=== PATIENT | female | born 1995 | race Caucasian/White ===

== ENCOUNTER 2017-06-12 13:52 | Emergency (ER) | payer OTHER ==
[2017-06-12 16:19] VITALS: BP 116/76
--- NOTE | 2017-07-07 10:02 | UC ---
Camila Aguilar Rebecca, scribed for Licha Guerra MD on 06/12/17 at 1620 . Eye Complaint HPI - HPI Summary HPI Summary: Pt is a 21 y/o F who presents to [facility] c/o bilateral eye erythema, pruritis. Sx began yesterday and have been constant since onset. Associated pain is currently mild, ranked 2/10. Additionally c/o bilateral eye drainage, characterized as "green goop," worse upon waking up. Sx aggravated by nothing, slightly alleviated by eye drops. Denies photophobia, cough, congestion, chills , fever, sore throat, abd pain and visual changes. - History of Current Complaint Chief Complaint: UCGeneralIllness Stated Complaint: EYE ISSUE Time Seen by Provider: 06/12/17 16:16 Hx Obtained From: Patient Hx Last Menstrual Period: 05/13/17 Onset/Duration: Lasting Days - Started yesterday, Still Present Timing: Constant Severity Currently: Mild Pain Intensity: 2 Pain Scale Used: 0-10 Numeric Aggravating Factor(s): Nothing Alleviating Factor(s): Eye Drops - Slightly Associated Signs And Symptoms: Positive: Drainage (Purulent) - "green goop". Negative: Photophobia, Vision Impairment Bilateral - Allergies/Home Medications Allergies/Adverse Reactions: Allergies Allergy/AdvReac Type Severity Reaction Status Date / Time No Known Allergies Allergy Verified 10/22/15 10:37 PMH/Surg Hx/FS Hx/Imm Hx Previously Healthy: Yes - No PMHX of DM, HTN, CAD - Surgical History Surgical History: Yes Surgery Procedure, Year, and Place: kidney surgery age 3 ureters were "twisted. " - Family History Known Family History: Positive: Diabetes - Social History Alcohol Use: Occasionally Substance Use Type: None Smoking Status (MU): Never Smoked Tobacco - Immunization History Most Recent Influenza Vaccination: none in 2014 Review of Systems Constitutional: Negative Skin: Negative Eyes: Drainage - Bilateral "green goop", Eye Redness, Other - Bilateral pruritis ENT: Negative Respiratory: Negative Cardiovascular: Negative Gastrointestinal: Negative Genitourinary: Negative Motor: Negative Neurovascular: Negative Musculoskeletal: Negative Neurological: Negative Psychological: Negative All Other Systems Reviewed And Are Negative: Yes - Comments Additional Review of Systems Comments: POSITIVE: Bilateral eye erythema, pruritis and drainage, characterized as " green goop" NEGATIVE: Photophobia, cough, congestion, chills, fever, sore throat, abd pain and visual changes. Physical Exam Triage Information Reviewed: Yes Appearance: Well-Nourished Vital Signs: Initial Vital Signs Temp 96.7 F 06/12/17 14:01 Pulse 74 06/12/17 14:01 Resp 18 06/12/17 14:01 BP 118/63 06/12/17 14:01 Pulse Ox 100 06/12/17 14:01 Vital Signs Reviewed: Yes Eyes: Positive: Conjunctiva Inflamed - + yellow discharge eye. ENT Exam: Normal ENT: Positive: Normal ENT inspection, Hearing grossly normal Neck exam: Normal Neck: Positive: Nontender Respiratory Exam: Normal Cardiovascular Exam: Normal Abdominal Exam: Normal Musculoskeletal Exam: Normal Neurological Exam: Normal Psychological Exam: Normal Skin Exam: Normal - Additional Comments Appearance: Well-Nourished Eye Exam: Bilateral sclera injection, bilateral conjunctival injection, left greater than right ENT Exam: Normal Neck: Normal, No adenopathy appreciated Respiratory Exam: Normal, no dyspnea, no tachypnea, normal respiratory rate Cardiovascular Exam: Normal Cardiovascular: Heart rate regular, good general skin color, good capillary refill, RRR, No Murmur, Pulses Normal - sitting up. Abdominal Exam: Normal Abdomen Description: Nontender, No Organomegaly, Soft Bowel Sounds: Present Musculoskeletal Exam: Normal Musculoskeletal: Strength Intact Neurological Exam: Normal: nonfocal, grossly intact Psychological Exam: Normal: conversing easily and appropriately Skin Exam: Normal: no visible or reported rash Eye Complaint Course/Dx - Course Course Of Treatment: Reviewed coa and f/u (luther if worse / no better). Questions answered as posed. Reviewed VS incl BP. - Differential Dx/Diagnosis Provider Diagnoses: Conjunctivitis Discharge - Discharge Plan Condition: Stable Disposition: HOME Prescriptions: Moxifloxacin 0.5% OPHTH(NF) [Vigamox 0.5% OPHTH(NF)] 2 drop BOTH EYES BID #1 [email or web address] Patient Education Materials: Conjunctivitis (ED) Forms: *Work Release Referrals: No Primary Care Phys,NOPCP [Primary Care Provider] - Additional Instructions: If green discharge is persists, cannot return to work - please seek medical attention for worse or new problems in the meantime. Take [id number] antihistamines, per packaging instructions as needed for itchy or watery eyes. If eye drops cause worsening redness, see your primary care physician or Urgent Care. The documentation as recorded by the Camila duff Rebecca accurately reflects the service I personally performed and the decisions made by me, Licha Guerra MD.
== END 2017-06-12 16:45 | disposition home or self-care (01) ==
LOC: UCEAST 13:52
DX: H10.33 Unspecified acute conjunctivitis, bilateral (principal)
CPT/HCPCS: 99212; G0463

== ENCOUNTER 2019-08-04 12:24 | Emergency (ER) | payer OTHER ==
[2019-08-04 13:16] VITALS: BP 123/71
--- NOTE | 2019-08-04 13:56 | UC ---
Complaint Female HPI - HPI Summary HPI Summary: Pt present with painful blisters found on left inner labia that began 1-2 days ago. Pt denies history of STI's including genital herpes. Pt is 19 weeks and scheduled for f//u on 08/12/19/ with OB provider - History Of Current Complaint Chief Complaint: UCGU Stated Complaint: URINARY Time Seen by Provider: 08/04/19 13:16 Hx Obtained From: Patient Hx Last Menstrual Period: 05/13/17 ?: Yes Onset/Duration: Sudden Onset, Lasting Days, Still Present Timing: Constant Severity Initially: Mild Severity Currently: Moderate Pain Intensity: 4 Character: Sharp, Burning Aggravating Factor(s): Urination Alleviating Factor(s): Nothing Associated Signs And Symptoms: Positive: Genital Blisters - Risk Factors Ectopic Risk Factor: Negative Ovarian Torsion Risk Factor: Reproductive Age - Allergies/Home Medications Allergies/Adverse Reactions: Allergies Allergy/AdvReac Type Severity Reaction Status Date / Time No Known Allergies Allergy Verified 08/04/19 13:10 Home Medications: Home Medications Mv-Mn/Iron/FA/Herbal/Digestive [ One Tablet] 1 each PO QAM 08/04/19 [ History Confirmed 08/04/19] PMH/Surg Hx/FS Hx/Imm Hx Previously Healthy: Yes - Surgical History Surgical History: Yes Surgery Procedure, Year, and Place: kidney surgery age 3 ureters were "twisted. " - Family History Known Family History: Positive: Diabetes - Social History Occupation: Employed Full-time Lives: With Family Alcohol Use: None Substance Use Type: None Smoking Status (MU): Never Smoked Tobacco Have You Smoked in the Last Year: No - Immunization History Most Recent Influenza Vaccination: none in 2014 Vaccination Up to Date: Yes Review of Systems All Other Systems Reviewed And Are Negative: Yes Constitutional: Positive: Negative Skin: Positive: Other - genital blisters Eyes: Positive: Negative ENT: Positive: Negative Respiratory: Positive: Negative Cardiovascular: Positive: Negative Gastrointestinal: Positive: Negative Genitourinary: Positive: Vaginal/Penile Tenderness, Ulceration/Lesion Motor: Positive: Negative Neurovascular: Positive: Negative Musculoskeletal: Positive: Negative Neurological: Positive: Negative Psychological: Positive: Negative Is Patient Immunocompromised?: No Physical Exam Triage Information Reviewed: Yes Appearance: Well-Appearing Vital Signs: Initial Vital Signs Temp 99.6 F 08/04/19 13:11 Pulse 87 08/04/19 13:11 Resp 20 08/04/19 13:11 BP 123/71 08/04/19 13:11 Pulse Ox 100 08/04/19 13:11 Vital Signs Reviewed: Yes Eye Exam: Normal ENT: Positive: Hearing grossly normal Dental Exam: Normal Neck exam: Normal Respiratory Exam: Normal Respiratory: Positive: No respiratory distress Pelvic Exam: Positive: Lesions - left inner labia major, cluster of fluid filled blisters that pt c/o of being painful. Musculoskeletal Exam: Normal Neurological Exam: Normal Psychological Exam: Normal Skin: Positive: Significant Lesion(s) - left inner labia major, clear fluid filled and tender Complaint Female Dx - Course Course Of Treatment: I discussed with the pt my concern for HSV and pt verbalized understanding. I also discussed that the blisters were in tact and nothing to swab. Pt verbalized understanding and agreed to plan of care. - Differential Dx/Diagnosis Differential Diagnosis/HQI/PQRI: Sexually Transmitted Disease Provider Diagnosis: Vaginal lesion Discharge ED - Sign-Out/Discharge Documenting (check all that apply): Patient Departure All imaging exams completed and their final reports reviewed: No Studies - Discharge Plan Condition: Stable Disposition: HOME Patient Education Materials: Vaginitis (ED) Referrals: Poonam Moran MD [Primary Care Provider] - If Needed Additional Instructions: Please follow up with your OB-Neuropsychology Director provider as soon as possible. - Billing Disposition and Condition Condition: STABLE Disposition: Home
== END 2019-08-04 13:59 | disposition home or self-care (01) ==
LOC: UCCORT 12:24
DX: N89.8 Other specified noninflammatory disorders of vagina (principal); O26.892 Other specified pregnancy related conditions, second trimester; Z3A.19 19 weeks gestation of pregnancy
CPT/HCPCS: 81003; 87086; 99211; G0463

== ENCOUNTER 2019-10-03 16:48 | Emergency (ER) | payer SELFPAY ==
[2019-10-03 17:34] VITALS: BP 142/94
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
== END 2019-10-03 18:05 | disposition home or self-care (01) ==
LOC: UCCORT 16:48
DX: O99.713 Diseases of the skin and subcutaneous tissue complicating pregnancy, third trimester (principal); L03.113 Cellulitis of right upper limb
CPT/HCPCS: 99212; G0463

== ENCOUNTER 2019-12-21 08:20 | Inpatient (IN) | payer OTHER ==
[2019-12-21] MEDS ORDERED: Lactated Ringers 1000 ML Bag* 1,000 ML IV ONE (09:10)
[2019-12-21] MEDS ORDERED: Buffered Lidocaine 1% SYRIN* 1 ML/SYRINGE INTRADERM ONE (09:10)
--- NOTE | 2019-12-21 09:24 | HP ---
General Information - Reason for Visit 24yo, IUP@39 week here for an IOL for A1 GDM - General Information Maternal Age: 24 Grav: 2 Para: 0 SAB: 0 IEA: 1 Estimated Due Date: 12/28/19 Determined By: Early Ultrasound Gestational Age in Weeks/Days: 39+0 Maternal Blood Type and Rh: B Positive - Results this Serology/RPR Result: Non-Reactive Rubella Result: Immune HBsAg Result: Negative HIV Result: Negative GBS Culture Result: Negative Past Medical History Past Surgical History Comment: Hx of uterine surgery at age 3 "to remove extra tube." Pt told "no impact on pregnancies" Family History Comment: PGM: diabetes MGF: stomach cancer - Antepartal Records Antepartal Records: Reviewed, Complicated by: - primary HSV outbreak, A1 GDM, mild pyelectasis Review of Systems Constitutional: Comfortable CV Complaint: No Respiratory: Shortness of Breath: No Gastrointestinal: No Nausea/Vomiting, Normal Bowel Movement Genitourinary: No Dysuria, No Bleeding, No Leaking Fluid Musculoskeletal: No Complaint, No Epigastric Pain Neurological: No Headache, No Visual Changes Movement: Normal Exam Allergies/Adverse Reactions: Allergies No Known Allergies Allergy (Verified 10/03/19 17:29) temp 97.8, HR 99, RR 20, BP 133/94, O2 100% - Measurements Height: 5 ft 2 in Weight: 7.337 oz Weight in lbs: 0.228885 Body Mass Index (BMI): 0.1 Pre- Weight: 198 lb Weight Gained This : 0.022 lbs and 0.001 ozs - Exam Breast: Breast Exam Deferred CVA: No CVA Tenderness Extremities: No Edema Heart: Normal Rhythm/Heart Sounds HEENT: No Significant Findings Lungs: Clear Bilaterally Rectal: Rectal Exam Deferred Reflexes: DTR 2+ Thyroid: No Thyromegaly - Abdominal Exam Abdomen Exam: Non-Tender - Ultrasound/Biophysical Profile Ultrasound Status: Not Done Targeted Exam Findings Estimated Weight: 8.5 lbs Cervical Exam: Fingertip - per VE in office yesterday by ASHELY ADAMSON Effacement: 60% Station: -2 Presenting Part: Vertex Membrane Status: Intact Bleeding/Discharge: None EFM Findings - External Monitor Findings Baseline Heart Rate: 125 External Monitor Findings: Accelerations Present, No Pattern of Variable or Late Decelerations, Variability Moderate External Monitor Findings Comment: No evidence of metabolic acidemia Contractions: None Assessment/Plan - Assessment 24yo, , IUP@39, here for an IOL for A1 GDM complicated by: A1 GDM, HSVII - primary outbreak GBS negative, B+, rubella immune VSS, not in labor No evidence of acidemia Not timoteo VE: deferred - Obstetrical Risk Factors Obstetrical Risk Factors: Gestational Diabetes Risk Factors Comment: 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 Pt and provider agree to start misoprostol, 50mcg, PO Anticipate progression to active labor - Date/Time of Admission Date of Admission: 12/21/19 Time of Admission: 09:00
[2019-12-21 09:58] LABS: Urine Benzodiazepine Screen None Detected (None Detect); Urine Opiates Screen None Detected (None Detect)
[2019-12-21] MEDS ORDERED: Misoprostol TAB* 100 MCG PO PRN (10:00)
[2019-12-21] MEDS ORDERED: Misoprostol TAB* 100 MCG ONE (13:34)
--- NOTE | 2019-12-21 16:14 | PN ---
Progress Note - Progress Note Date of Service: 12/21/19 Note: S: Pt in bed resting. Feeling contractions every 3-4 minutes, uncomfortable, but not painful. Mother and FOB at bedside, supportive. O: BP 134/87, HR 88, temp 98.3 FHR: 130, mod variability, +accels, no decels Ctx: q3-4, coupling, palpate moderate VE: deferred A: IUP@39 weeks here for ripening/IOL A1 GDM Not in active labor No evidence of metabolic acidemia Irregular contractions 2 doses on misoprostol. P: Consider 3rd dose of misoprostol, unless hold for contractions Anticipate progression to active labor
[2019-12-21] MEDS ORDERED: Dinoprostone* 10 MG VAG.SUPP VAGINAL ONE (20:50)
--- NOTE | 2019-12-21 21:50 | PN ---
Progress Note - Progress Note Date of Service: 12/21/19 Note: S: Pt in bed resting. Feeling contractions every 3-4 minutes. Some more uncomfortable than others, but generally describes as mild. O: BP 135/85, HR 93, temp 98 FHR: 135, mod variability, +accels, no decels Ctx: q3-4, coupling, palpate mild VE: unchanged A: IUP@39 weeks here for ripening/IOL A1 GDM Not in active labor No evidence of metabolic acidemia Irregular contractions, mild contractions, good resting tone P: PARQ discussion about cervidil overnight. Pt and in agreement with plan. Anticipate progression to active labor
[2019-12-21] MEDS: VALACYCLOVIR 1 GM PO SCH (22:10)
[2019-12-21] MEDS: diPHENhydraMINE PO* 50 MG PO PRN (22:10)
[2019-12-22] MEDS ORDERED: Misoprostol TAB* 100 MCG VAGINAL ONE (09:56)
--- NOTE | 2019-12-22 10:31 | PN ---
Progress Note - Progress Note Date of Service: 12/22/19 Note: S: Reports good rest overnight. occasionally feeling UCs but not very strong O: B/P 126/84, P 75, R 18, T 98.8 FHR: baseline 130, moderate variability, + accels, no decels UCs: irregular, mild VE: FT/60/-1 A: IUP at 39 0/7 weeks No evidence of metabolic acidemia George score: 3 P: PARQ discussion ripening with vaginal misoprostol. Pt agrees Reassess PRN Anticipate SVB
[2019-12-22] MEDS ORDERED: Misoprostol TAB* 100 MCG PO ONE (13:53)
--- NOTE | 2019-12-22 14:03 | PN ---
Progress Note - Progress Note Date of Service: 12/22/19 Note: S: Has not felt UCs since dose of vaginal misoprostol O: B/P: 126/84, P: 75, R: 18, T: 98.8 FHR: baseline 135, moderate variability, +accelerations, no decelerations UCs: irregular, mild VE: 1.5/60/-1 A: IUP at 39 0/7 weeks No evidence of metabolic acidemia George score: 4 P: Will dose with 50 mcg misoprostol sublingually EFM per protocol Reassess PRN Anticipate SVB
[2019-12-22] MEDS: VALACYCLOVIR 1 GM PO SCH ×3 (16:49→22:52)
--- NOTE | 2019-12-22 18:09 | PN ---
Progress Note - Progress Note Date of Service: 12/22/19 Note: S: Feeling some UCs O: B/P: 136/92, P: 78, R: 20, T: 98.4 FHR: FHR 130s by intermittent auscultation UCs: q 2-5 min, mild to palpation VE: 0.5/60/-1 A: IUP at 39 0/7 weeks No evidence of metabolic acidemia George score: 4 P: Attempted to place cook catheter, unable to pass catheter through internal os Discussed options for further ripening/IOL, pt opts for trial of low-dose IV pitocin Will start IV and draw labs, obtain FHR tracing prior to initiation Reassess PRN Anticipate SVB
[2019-12-22 18:43] LABS: ABS Basophils 0.1 10^3/ul (0-0.2); ABS Eosinophils 0.1 10^3/ul (0-0.6); ABS Lymphocytes 2.1 10^3/ul (1.0-4.8); ABS Monocytes 1.2 10^3/ul (0-0.8); ABS Neutrophils 13.9 10^3/ul (1.5-7.7); Eosinophil % 0.5 %; Hematocrit 35 % (35-47); Hemoglobin 12.2 g/dL (12.0-16.0); Mean Corpuscular HGB Conc 35 g/dL (31-36); Mean Corpuscular Hemoglobin 30 pg (27-31); Mean Corpuscular Volume 86 fL (80-97); Mean Platelet Volume 8.3 fL (7.4-10.4); Platelet Count 266 10^3/uL (150-450); Red Blood Count 4.13 10^6 /uL (3.70-4.87); Red Cell Distribution Width 15 % (10-15); White Blood Count 17.3 10^3/uL (3.5-10.8)
[2019-12-22] MEDS ORDERED: Oxytocin in LR* 20 UNITS/1,000 ML BAG IVPB SCH (19:00)
[2019-12-22] MEDS: diPHENhydraMINE PO* 50 MG PO PRN (22:52)
--- NOTE | 2019-12-23 00:23 | PN ---
Progress Note - Progress Note Date of Service: 12/23/19 Note: S: Reports gush of clear fluid at 1200. Still feeling fairly comfortable. O: B/P: 123/68, P: 68, R: 20, T: 98.7 FHR: baseline 150, moderate variability, +accelerations, no decelerations UCs: not always tracing well, q 2-3 min, mild VE deferred in presence of gross rupture to clear fluid Pitocin at 10 mu/min A: IUP at 39 1/7 weeks Category I FHR, no evidence of metabolic acidemia P: Continue pitocin per protocol Reassess PRN Anticipate SVB
[2019-12-23] MEDS ORDERED: Morphine 10 MG/ML VIAL (1 ml) IV ONE ×2 (01:08→08:53)
[2019-12-23] MEDS ORDERED: Promethazine INJ(RESTRICTED)* 25 MG/ML 1 ML VIAL IV ONE (01:12)
--- NOTE | 2019-12-23 01:16 | PN ---
Progress Note - Progress Note Date of Service: 12/23/19 Note: S: Reports she quickly got very uncomfortable, requesting pain medication O: B/P: 123/68, P: 68, R: 20, T: 98.7 FHR: baseline 135, minimal variability with periods of moderate variability , no accelerations. Occasional late decelerations. Occasional early decels UCs: q 2-3 min, not tracing well, mild-moderate to palpation VE: 1-1.5/65/-1. Clear fluid Pitocin at 10 mu/min A: IUP at 39 1/7 weeks Category II FHR, doubt metabolic acidemia Early labor P: Pt ultimately plans epidural. Will give morphine and phenergan for therapeutic rest Continue pitocin per protocol. Ok to take a pitocin rest for 1-2 hrs if she desires reassess PRN Anticipate SVB
--- NOTE | 2019-12-23 05:08 | PN ---
Progress Note - Progress Note Date of Service: 12/23/19 Note: S: Initially comfortable after therapeutic rest, requesting to discuss pain management options O: B/P: 123/68, P: 68, R: 20, T: 98.7 FHR: baseline 125, moderate variability, +accelerations, no decelerations UCs: q 3-4 min, mild-moderate VE: 1.5/80/-1. Clear fluid Pitocin at 10 mu/min A: IUP at 39 1/7 weeks Category I FHR, no evidence of metabolic acidemia P: Too soon for repeat dose therapeutic rest Discussed taking break from pitocin for 1-2 hrs, getting in tub or shower, resting without monitors prior to restarting Re-start pitocin at 0700 Anticipate SVB
[2019-12-23] MEDS ORDERED: Promethazine INJ(RESTRICTED)* 25 MG/ML 1 ML VIAL IV PRN (08:53)
--- NOTE | 2019-12-23 09:04 | PN ---
Progress Note - Progress Note Date of Service: 12/23/19 Note: S: Feeling ok, got a little bit of sleep but feels like she might want to rest more. Contractions spaced out but still strong when she feels them. O: VE deferred FHT 145 last doppler UCs approx Q 6+ min Last BP 135/91, T 98.0 Pitocin off A: IUP @ 39+2 weeks gestation for induction of labor GDM Ruptured membranes No evidence acidemia P: Discussion with patient of continued rest as she reports being tired and not sleeping well vs restarting pitocin. Patient desires therapeutic rest, had good effect yesterday with morphine/phenergan. Will repeat dose with plan for restarting pitocin and encouraging ambulation in several hours. Will draw labs for PEC.
[2019-12-23 09:29] LABS: ABS Lymphocytes 1.5 10^3/ul (1.0-4.8); ABS Monocytes 0.8 10^3/ul (0-0.8); ABS Neutrophils 18.3 10^3/ul (1.5-7.7); Hematocrit 34 % (35-47); Hemoglobin 11.9 g/dL (12.0-16.0); Lymphocyte % 7.2 %; Mean Corpuscular HGB Conc 35 g/dL (31-36); Mean Corpuscular Hemoglobin 29 pg (27-31); Mean Corpuscular Volume 85 fL (80-97); Mean Platelet Volume 8.6 fL (7.4-10.4); Platelet Count 236 10^3/uL (150-450); Red Blood Count 4.03 10^6 /uL (3.70-4.87); Red Cell Distribution Width 15 % (10-15); White Blood Count 20.7 10^3/uL (3.5-10.8)
[2019-12-23 09:51] LABS: Albumin 2.9 g/dL (3.2-5.2); BUN/Creatinine Ratio 11.9 (8-20); Calcium 9.1 mg/dL (8.6-10.3); EGFR African American 129.8 (>60); EGFR Non-African American 107.2 (>60); Globulin 2.9 g/dL (2-4); Potassium 3.6 mmol/L (3.5-5.0); Total Bilirubin 0.3 mg/dL (0.2-1.0); Total Protein 5.8 g/dL (6.4-8.9); Uric Acid 4.8 mg/dL (2.3-6.6)
[2019-12-23 12:25] LABS: Urine Appearance Cloudy; Urine Bilirubin Negative (Negative); Urine Blood 3+ (Negative); Urine Color Yellow; Urine Glucose Negative (Negative); Urine Ketones Negative (Negative); Urine Nitrite Negative (Negative); Urine Protein Negative (Negative); Urine Specific Gravity 1.004 (1.010-1.030); Urine Urobilinogen Negative (Negative)
[2019-12-23 12:43] LABS: Urine Bacteria Absent (Absent); Urine Red Blood Cell 3+(>10/hpf) (Absent); Urine Squamous Epithelial Cell Present (Absent); Urine White Blood Cell 3+(>20/hpf) (Absent)
[2019-12-23] MEDS: Lactated Ringers 1000 ML Bag* 1,000 ML IV SCH ×2 (13:22→19:15)
[2019-12-23] MEDS ORDERED: Sodium Phosphate ADULT ENEMA* 118 ml bottle PR ONE (16:21)
--- NOTE | 2019-12-23 16:23 | PN ---
Progress Note - Progress Note Date of Service: 12/23/19 Note: S: Patient felt like she had to have bowel movement, struggled to do so and felt "shaky" on toilet with increased rectal pressure. O: VE 3/80/0 FHT 145, occasional variable decels, +accels, min-mod variability UCs difficult to trace, approx q 3-4 min Pit @ 8 Pre-eclampsia labs WNL A: IUP @ 39+2 weeks gestation for induction of labor Membranes ruptured Doubt acidemia P: Discussion of enema, patient in agreement. Will plan to turn off pitocin to make this process easier. Patient may want to try tub. Will desire epidural when labor stronger.
[2019-12-23] MEDS: VALACYCLOVIR 1 GM PO SCH ×2 (18:12)
[2019-12-23] MEDS ORDERED: OBEPIDURAL* 250 ML EPIDURAL ONE (19:31)
--- NOTE | 2019-12-23 19:56 | PN ---
Progress Note - Progress Note Date of Service: 12/23/19 Note: S: Patient desires pain management, would like epidural. O: VE deferred FHT 145, +accels, rare variable decel, mod riya UCs q 3-5 min Last BP 158/101, with contraction, will repeat. Pit @ 6 A: IUP in active labor Doubt acidemia Suspect GHTN P: Anesthesia paged
[2019-12-23 20:05] LABS: Mean Platelet Volume 8.6 fL (7.4-10.4); Platelet Count 255 10^3/uL (150-450)
[2019-12-23] MEDS ORDERED: Famotidine TAB* 20 MG PO PRN (20:49)
[2019-12-23] MEDS ORDERED: EPHEDrine (Pressors)* 50 MG/ML VIAL IV PUSH PRN ×2 (20:49)
[2019-12-23] MEDS ORDERED: Sodium Citrate/Citric Acid* 15 ML UDC PO PRN (20:49)
[2019-12-23] MEDS ORDERED: Phenylephrine 40 MCG/ML SYRINGE IV PUSH PRN ×2 (20:49)
[2019-12-23] MEDS ORDERED: OBEPIDURAL* 250 ML EPIDURAL SCH (21:00)
--- NOTE | 2019-12-23 21:01 | PN ---
Progress Note - Progress Note Date of Service: 12/23/19 Note: S: Feeling great, comfortable with epidural O: VE /+1 FHT 145, +accels, mod riya, rare variable decel Pit @ 6 VSS A: IUP @ 39+2 weeks gestation in labor Doubt metabolic acidemia P: Encourage side to side position changes, rest as desired. Will recheck with increased pressure or other changes. Anticipate SVB.
[2019-12-23] MEDS ORDERED: Lidocaine 1.5% EPI 1:200,000* 30 ML SDV ONE (23:57)
[2019-12-24] MEDS ORDERED: Acetaminophen TAB* 325 MG PO PRN (01:18)
[2019-12-24] MEDS ORDERED: Glycerin ADULT SUPP PR PRN (01:18)
[2019-12-24] MEDS ORDERED: Oxytocin in LR* 20 UNITS/1,000 ML BAG IVPB SCH (02:00)
[2019-12-24] MEDS ORDERED: Lactated Ringers 1000 ML Bag* 1,000 ML IV SCH (02:00)
[2019-12-24] MEDS: Ibuprofen TAB* 600 MG PO PRN ×2 (02:14→12:14)
[2019-12-24] MEDS: Dibucaine 1% 28.35 GM TUBE PR PRN ×2 (02:16→21:38)
[2019-12-24] MEDS: Witch Hazel PAD* JAR TOPICAL PRN (02:16)
--- NOTE | 2019-12-24 02:19 | PROCNOTE ---
[facility] OB: Delivery Note - Delivery A Date of : 12/24/19 Time of : 00:50 [place] Sex: Male - "Ron Woodall" Weight at : 7 lb 4 oz Score 1 Minute: 6 Score 5 Minutes: 9 Gestational Age in Weeks and Days at Delivery: 39 Weeks and 3 Days Delivery Method: Spontaneous Vaginal Labor: Spontaneous Amniotic Fluid: Clear Estimated Blood Loss: 200 Anesthesia/Analgesia: CEI for Labor Delivered By: Andrea Luevano - Nursery Level of Nursery: Regular/Bedside - Perineum Perineal Injury Comment: right labial with repair Perineal Repair: By Delivering Practioner - Events Delivery Events of Note: Pitocin During Labor, ROM > 24 Hours - Additional Delivery Notes Additional Delivery Notes: Patient admitted for induction of labor for GDM. Cervical ripening and pitocin eventually lead to active labor. Patient received epidural with initial relief but had breakthrough pain in right side. Anesthesia called to assess for bolus and patient progressed rapidly to complete with urge to push. Length of active labor 24'56", pushed 50 min. Baby born OA with smooth restitution to JOSE at 0050. Double nuchal cord noted but too tight to be unwrapped and baby delivered through with anterior nuchal arm as well. Cord unwrapped after and baby to maternal abdomen with respiratory efforts with stimulation. HR >110. Cord doubly clamped and cut by FOB once pulsations ceased. Placenta at introitus and delivered with gentle traction @ 0056. Fundus firm with pitocin infusing. Perineum intact, small right labial abrasion repaired with two stitches. Baby at breast to initiate .
[2019-12-24] MEDS ORDERED: Lidocaine 1% INJ* 10 MG/ML 30 ML SDV ONE (06:33)
[2019-12-24] MEDS: Docusate CAP* 100 MG PO SCH ×3 (08:33→21:38)
[2019-12-24] MEDS: VALACYCLOVIR 1 GM PO SCH ×2 (21:38→22:16)
[2019-12-25] MEDS: Docusate CAP* 100 MG PO SCH ×3 (07:59→20:13)
[2019-12-25] MEDS: Ibuprofen TAB* 600 MG PO PRN ×3 (07:59→20:13)
[2019-12-25 08:12] LABS: ABS Basophils 0.1 10^3/ul (0-0.2); ABS Eosinophils 0.2 10^3/ul (0-0.6); ABS Lymphocytes 2.9 10^3/ul (1.0-4.8); ABS Monocytes 1.1 10^3/ul (0-0.8); ABS Neutrophils 9.8 10^3/ul (1.5-7.7); Eosinophil % 1.7 %; Hematocrit 35 % (35-47); Hemoglobin 11.9 g/dL (12.0-16.0); Lymphocyte % 20.6 %; Mean Corpuscular HGB Conc 34 g/dL (31-36); Mean Corpuscular Hemoglobin 30 pg (27-31); Mean Corpuscular Volume 86 fL (80-97); Mean Platelet Volume 8.2 fL (7.4-10.4); Nucleated Red Blood Cells % 0.1; Platelet Count 222 10^3/uL (150-450); Red Blood Count 4.01 10^6 /uL (3.70-4.87); Red Cell Distribution Width 15 % (10-15); White Blood Count 14.1 10^3/uL (3.5-10.8)
[2019-12-25] MEDS ORDERED: Ferrous Gluconate TAB* 324 MG TAB PO SCH (09:00)
[2019-12-25] MEDS: VALACYCLOVIR 1 GM PO SCH ×2 (11:04→20:12)
[2019-12-25] MEDS: Witch Hazel PAD* JAR TOPICAL PRN (14:04)
[2019-12-25] MEDS: Dibucaine 1% 28.35 GM TUBE PR PRN (14:04)
[2019-12-26] MEDS: VALACYCLOVIR 1 GM PO SCH ×2 (07:22→08:27)
[2019-12-26 07:32] VITALS: BP 132/87
[2019-12-26] MEDS: Docusate CAP* 100 MG PO SCH ×2 (08:27→14:12)
[2019-12-26] MEDS: Ibuprofen TAB* 600 MG PO PRN ×2 (08:28→14:12)
== END 2019-12-26 18:49 | disposition home or self-care (01) | DRG 560 ==
LOC: MCHOBOUT 08:20 → MCHOB 09:25
PROVIDERS: ADMIT Advanced Practice Midwife; ATTEND Midwife
PROC: 10E0XZZ Delivery of Products of Conception, External Approach (ICD-10-PCS; principal; 2019-12-24)
PROC: 3E033VJ Introduction of Other Hormone into Peripheral Vein, Percutaneous Approach (ICD-10-PCS; 2019-12-24)
PROC: 0HQ9XZZ Repair Perineum Skin, External Approach (ICD-10-PCS; 2019-12-24)
DX: O24.429 Gestational diabetes mellitus in childbirth, unspecified control (principal); Z37.0 Single live birth; O70.0 First degree perineal laceration during delivery; O76 Abnormality in fetal heart rate and rhythm complicating labor and delivery; Z3A.39 39 weeks gestation of pregnancy
CPT/HCPCS: 36415; 59200; 80053; 80307; 81003; 81015; 84550; 85025; 85049; 86850; 86900; 86901; 87086; A9270-GY; G0480; J2270; J2550; S0191

== ENCOUNTER 2023-07-07 00:27 | Inpatient (IN) ==
[2023-07-07] MEDS ORDERED: Lactated Ringers 1000 ml BAG 1,000 ML IV ONE ×2 (01:48→13:54)
[2023-07-07] MEDS ORDERED: Promethazine INJ(RESTRICTED) 25 MG/ML 1 ml VIAL IV PRN (01:48)
[2023-07-07] MEDS ORDERED: Buffered Lidocaine 1% SYRIN 1 ml INTRADERM ONE (01:48)
[2023-07-07] MEDS ORDERED: Lactated Ringers 1000 ml BAG 1,000 ML IV SCH ×3 (02:00→18:00)
[2023-07-07 02:34] LABS: Urine Benzodiazepine Screen None Detected (None Detect); Urine Opiates Screen None Detected (None Detect)
[2023-07-07 09:06] LABS: ABS Eosinophils 0.1 10^3/uL (0.0-0.5); ABS Lymphocytes 1.8 10^3/uL (1.0-4.8); ABS Monocytes 0.9 10^3/uL (0.0-0.9); ABS Neutrophils 10.8 10^3/uL (1.5-7.6); ABS Nucleated RBC 0.03 10^3/ul; Eosinophil % 0.4 %; Hematocrit 30.3 % (35-45); Hemoglobin 10.3 g/dL (11.5-14.3); Lymphocyte % 13.2 %; Mean Corpuscular Hemoglobin 28.1 pg (27-33); Mean Corpuscular Volume 82.6 fL (80-97); Mean Platelet Volume 7.6 fL (7.5-11.2); Nucleated Red Blood Cells % 0.2 /100 WBC (0.0-0.4); Platelet Count 228 10^3/uL (150-450); Red Blood Count 3.66 10^6/uL (3.63-4.92); Red Cell Distribution Width 14.9 % (12-17); White Blood Count 13.6 10^3/uL (3.8-11.8)
[2023-07-07] MEDS ORDERED: Oxytocin in LR 20,000 MILLI.UNIT/1,000 ML BAG IV SCH ×2 (11:10→17:25)
[2023-07-07 11:13] LABS: Urine Appearance Cloudy; Urine Bilirubin Negative (Negative); Urine Blood 2+ (Negative); Urine Color Straw; Urine Glucose Negative (Negative); Urine Ketones Negative (Negative); Urine Nitrite Negative (Negative); Urine Protein Negative (Negative); Urine Specific Gravity 1.003 (1.002-1.030); Urine Urobilinogen Negative (Negative)
[2023-07-07 11:18] LABS: Urine Bacteria Absent (Absent); Urine Red Blood Cell Trace(0-2/hpf) (Absent); Urine Squamous Epithelial Cell Present (Absent); Urine White Blood Cell Trace(0-5/hpf) (Absent)
[2023-07-07 11:27] LABS: Albumin 3.3 g/dL (3.2-5.2); Albumin/Globulin Ratio 1.4 (1-3); Calcium 10.2 mg/dL (8.6-10.3); Creatinine, Serum 0.76 mg/dL (0.51-0.95); Globulin 2.4 g/dL (2-4); Potassium 3.5 mmol/L (3.5-5.0); Total Bilirubin 0.4 mg/dL (0.2-1.0); Total Protein 5.7 g/dL (6.4-8.9); eGFR CKD-EPI 109.4 (>60)
[2023-07-07 11:28] LABS: Urine Creatinine Concentration 22.2 mg/dL (20.00-320.00)
[2023-07-07 11:32] LABS: Urine TP Creat Ratio 0.27 mg/mg
[2023-07-07] MEDS ORDERED: Lidocaine 1.5% EPI 1:200,000 30 ML SDV ONE (12:57)
[2023-07-07] MEDS ORDERED: OBEPIDURAL (200 ML) 200 ML EPIDURAL ONE (12:57)
[2023-07-07] MEDS ORDERED: Sodium Citrate/Citric Acid LIQ 15 ML UDC PO PRN (13:54)
[2023-07-07] MEDS ORDERED: Phenylephrine 40 mcg/mL 10mL (400mcg) SYRINGE IV PUSH PRN ×2 (13:54)
[2023-07-07] MEDS ORDERED: Lactated Ringers 1000 ml BAG 500 ML IV PRN ×2 (13:54)
[2023-07-07] MEDS ORDERED: OBEPIDURAL (200 ML) 200 ML EPIDURAL SCH (14:00)
[2023-07-07] MEDS ORDERED: Witch Hazel PAD JAR TOPICAL PRN (17:21)
[2023-07-07] MEDS ORDERED: Dibucaine 1% OINT 28.35 GM TUBE PR PRN (17:21)
[2023-07-08 07:25] LABS: ABS Eosinophils 0.1 10^3/uL (0.0-0.5); ABS Lymphocytes 2.2 10^3/uL (1.0-4.8); ABS Monocytes 1.1 10^3/uL (0.0-0.9); ABS Neutrophils 10.8 10^3/uL (1.5-7.6); ABS Nucleated RBC 0.01 10^3/ul; Eosinophil % 0.4 %; Hematocrit 27.3 % (35-45); Hemoglobin 9.4 g/dL (11.5-14.3); Lymphocyte % 15.2 %; Mean Corpuscular Hemoglobin 27.8 pg (27-33); Mean Corpuscular Hgb Conc 34.5 g/dL (31-36); Mean Corpuscular Volume 80.5 fL (80-97); Mean Platelet Volume 7.2 fL (7.5-11.2); Platelet Count 202 10^3/uL (150-450); Red Blood Count 3.39 10^6/uL (3.63-4.92); Red Cell Distribution Width 14.9 % (12-17); White Blood Count 14.1 10^3/uL (3.8-11.8)
[2023-07-08] MEDS ORDERED: Varicella Virus Vaccine Live 0.5 ML VIAL SUBCUT ONE (15:05)
[2023-07-08 16:48] VITALS: BP 135/89
== END 2023-07-08 18:45 | disposition home or self-care (01) | DRG 560 ==
LOC: MCHOBOUT 00:27 → MCHOB 01:43 → UNDODISIN 13:32 → MCHOB 20:02
PROVIDERS: ADMIT Registered Nurse; ATTEND Registered Nurse